=== PATIENT | female | born 1985 | race Caucasian/White ===

== ENCOUNTER 2016-09-01 13:15 | Emergency (ER) | payer MEDICAID ==
[~2016-09-01] VITALS: Ht 160 cm; Wt 65.9 kg
[~2016-09-01 13:15] MED LIST: MOTRIN 600600 MG/TAB PO; PROTONIX 40MG T40 MG PO; TOPROL XL 25MG25 MG PO; ZOFRAN ODT4 MG PO; [UNRECOGNIZED DRUG - REMARK]
[2016-09-01 13:17] VITALS: BP 151/59; PULSE 93; TEMP 97.8
[2016-09-01] MEDS ORDERED: MOBIC 7.5MG7.5 MG PO (13:20)
== END 2016-09-01 15:03 | disposition home or self-care (01) ==
LOC: COL.ER 13:15
DX: S16.1XXA Strain of muscle, fascia and tendon at neck level, initial encounter (principal); S46.912A Strain of unspecified muscle, fascia and tendon at shoulder and upper arm level, left arm, initial encounter; Y04.2XXA Assault by strike against or bumped into by another person, initial encounter; Y92.59 Other trade areas as the place of occurrence of the external cause; I10 Essential (primary) hypertension

== ENCOUNTER 2018-06-14 09:16 | Emergency (ER) | payer SELFPAY ==
[~2018-06-14] VITALS: Ht 162.6 cm; Wt 65.9 kg
[~2018-06-14 09:16] MED LIST changes: +MOBIC 7.5MG7.5 MG PO
[2018-06-14 09:26] VITALS: TEMP 98.7
[2018-06-14 10:02] LABS: BASO % 0.7 % (0.0-2.0); EOS # 0.1 (0.0-0.7); EOS % 2.1 % (0-4.0); GRAN # 3.6 (1.4-6.5); GRAN % 58.9 % (42.2-75.2); HEMOGLOBIN 10.7 g/dl (12.5-16.0); LYMPH # 1.8 (1.2-3.4); LYMPH % 30.2 % (20.0-51.0); MEAN CELL VOLUME 79 fl (80.0-100.0); MEAN CORPUSCULAR HEMOGLOBIN 25 pg (27.0-31.0); MEAN CORPUSCULAR HGB CONC 31 g/dl (33.0-37.0); MEAN PLATELET VOLUME 11.1 fl (7.4-10.4); MONO # 0.5 (0.1-0.6); MONO % 7.9 % (1.7-9.3); PLATELET COUNT 183 K/mm3 (130-400); RED BLOOD COUNT 4.34 M/mm3 (4.10-5.30)
[2018-06-14 10:03] LABS: HEMATOCRIT 34.1 % (37.0-47.0)
[2018-06-14 10:16] LABS: ALANINE AMINOTRANSFERASE 24 U/L (9-52); ALBUMIN 4.1 gm/dL (3.5-5.0); ALKALINE PHOSPHATASE 69 U/L (50-136); ANION GAP 7 mmol/L (7-16); AST,SGOT 24 U/L (15-37); BILIRUBIN,TOTAL 0.4 mg/dL (0.0-1.0); BLOOD UREA NITROGEN 11 mg/dL (7-17); CARBON DIOXIDE 26 mmol/L (22-30); CHLORIDE 105 mmol/L (98-107); CREATININE, serum 0.67 mg/dL (0.52-1.25); GLUCOSE 93 mg/dL (74-106); POTASSIUM 3.9 mmol/L (3.4-5.0); SODIUM 138 mmol/L (137-145); TOTAL PROTEIN 7.8 gm/dL (6.4-8.2)
[2018-06-14 10:22] LABS: C-REACTIVE PROTEIN < 0.5 mg/dL (0.0-0.9)
[2018-06-14] MEDS ORDERED: BONINE25 MG PO (10:38)
[2018-06-14 11:00] VITALS: BP 115/69; PULSE 69
== END 2018-06-14 11:05 | disposition home or self-care (01) ==
LOC: COL.ER 09:16
PROVIDERS: Family Medicine
DX: H83.02 Labyrinthitis, left ear (principal); E86.1 Hypovolemia
CPT/HCPCS: J7030

== ENCOUNTER 2019-06-07 19:18 | Emergency (ER) | payer SELFPAY ==
[~2019-06-07] VITALS: Ht 162.6 cm; Wt 75.5 kg
[~2019-06-07 19:18] MED LIST changes: +BONINE25 MG PO
[2019-06-07 20:02] LABS: COLLECTION METHOD CLEAN CATCH
[2019-06-07 20:10] LABS: MUCOUS Present /lpf; PH 5 (5-8); SQUAMOUS EPITHELIAL 0-2 /hpf; URINE APPEARANCE Clear; URINE BACTERIA None Seen /hpf; URINE BILIRUBIN Negative (NEGATIVE); URINE BLOOD 2+ (NEGATIVE); URINE COLOR Yellow; URINE GLUCOSE Negative (NEGATIVE); URINE KETONE 1+ (NEGATIVE); URINE LEUKOCYTE ESTERASE Negative (NEGATIVE); URINE NITRATE Negative (NEGATIVE); URINE PROTEIN(semi-quant) 1+ (NEGATIVE); URINE UROBILINOGEN Negative (NEGATIVE)
[2019-06-07] MEDS ORDERED: TAMIFLU 75MG75 MG PO (21:07)
[2019-06-07 21:50] VITALS: BP 113/62; PULSE 89; TEMP 99
== END 2019-06-07 21:50 | disposition home or self-care (01) ==
LOC: COL.ER 19:18
PROVIDERS: Family Medicine
DX: J10.1 Influenza due to other identified influenza virus with other respiratory manifestations (principal)

== ENCOUNTER → 2020-05-15 | Emergency (ER) | payer MEDICAID ==
[~2020-05-15] MED LIST changes: +TAMIFLU 75MG75 MG PO
== END ==
LOC: COL.ER 12:50
DX: Z00.00 Encounter for general adult medical examination without abnormal findings (principal)

== ENCOUNTER → 2020-05-18 | Outpatient (CLI) | payer MEDICAID | LOC: ZCOL.LAB 10:02 | DX: U07.1 COVID-19 (principal) ==

== ENCOUNTER → 2020-05-21 | Outpatient (CLI) | payer MEDICAID | LOC: ZCOL.LAB 15:27 | DX: Z53.8 Procedure and treatment not carried out for other reasons (principal) ==

== ENCOUNTER → 2020-10-16 | Outpatient (CLI) | payer MEDICAID ==
[~2020-10-16] MED LIST changes: +TOPROL XL 50MG50 MG PO
== END ==
LOC: COL.RAD 13:46
DX: R22.1 Localized swelling, mass and lump, neck (principal); L98.8 Other specified disorders of the skin and subcutaneous tissue

== ENCOUNTER → 2020-12-07 | Outpatient (CLI) | payer MEDICAID | LOC: COL.RAD 09:45 | DX: E04.2 Nontoxic multinodular goiter (principal); R93.89 Abnormal findings on diagnostic imaging of other specified body structures | CPT/HCPCS: A9585 ==

== ENCOUNTER 2021-05-16 10:16 | Emergency (ER) | payer MEDICAID ==
[~2021-05-16] VITALS: Ht 162.6 cm; Wt 72.7 kg
[2021-05-16 10:50] VITALS: TEMP 98.5
[2021-05-16] MEDS ORDERED: SYNTHROID0.125 MG/T PO (10:56)
[2021-05-16] MEDS ORDERED: PEPCID 20MG TAB20 MG PO (11:02)
[2021-05-16] MEDS ORDERED: ZOFRAN ODT4 MG PO (11:02)
[2021-05-16 11:11] VITALS: BP 115/75; PULSE 87
== END 2021-05-16 11:07 | disposition home or self-care (01) ==
LOC: COL.ER 10:16
DX: Z73.0 Burn-out (principal); E03.9 Hypothyroidism, unspecified; Z79.890 Hormone replacement therapy

== ENCOUNTER → 2021-06-13 | Outpatient (CLI) | payer MEDICAID ==
[~2021-06-13] MED LIST changes: +PEPCID 20MG TAB20 MG PO; +SYNTHROID0.125 MG/T PO
[2021-06-13 11:59] LABS: BASO # 0.1 K/mm3 (0.0-0.2); BASO % 0.9 % (0.0-2.0); EOS # 0.2 K/mm3 (0.0-0.7); EOS % 3.2 % (0.0-4.0); GRAN # 3.1 K/mm3 (1.4-6.5); GRAN % 54.5 % (42.2-75.2); HEMOGLOBIN 10.5 g/dl (12.5-16.0); LYMPH % 34.2 % (20.0-51.0); MEAN CELL VOLUME 82 fl (80.0-100.0); MEAN CORPUSCULAR HEMOGLOBIN 26 pg (27-31); MEAN CORPUSCULAR HGB CONC 32 g/dl (33.0-37.0); MEAN PLATELET VOLUME 11.3 fl (7.4-10.4); MONO # 0.4 K/mm3 (0.1-0.6); PLATELET COUNT 193 K/mm3 (130-400); RED BLOOD COUNT 4.03 M/mm3 (4.10-5.30)
[2021-06-13 12:00] LABS: HEMATOCRIT 33.1 % (37.0-47.0)
[2021-06-13 12:19] LABS: ALBUMIN 3.8 gm/dL (3.5-5.0); BILIRUBIN,TOTAL 0.2 mg/dL (0.2-1.2); CALCIUM 8.9 mg/dL (8.4-10.2); CREATININE, serum 0.72 mg/dL (0.57-1.11); POTASSIUM 3.5 mmol/L (3.5-4.5); TOTAL PROTEIN 7.6 gm/dL (6.2-8.1)
== END ==
LOC: COL.LAB 11:19
PROVIDERS: Registered Nurse
DX: R10.12 Left upper quadrant pain (principal)

== ENCOUNTER 2024-01-04 23:26 | Emergency (ER) | payer OTHER ==
[~2024-01-04] VITALS: Ht 165.1 cm; Wt 72.7 kg
[~2024-01-04 23:26] MED LIST changes: +CEPHALEXIN500 M1 PO; +LEVAQUIN 5500 MG/TA1 PO; +MIRALAX238G PO; +NORCO 325 MG-51 TAB PO
[2024-01-04 23:50] VITALS: TEMP 98.7
[2024-01-05] MEDS ORDERED: NS 1,000 ML IV ONE (02:45)
[2024-01-05] MEDS ORDERED: Ondansetron 4 MG/2 ML VIAL IV ONE (02:45)
[2024-01-05 03:02] LABS: COLLECTION METHOD CLEAN CATCH
[2024-01-05 03:04] LABS: BASO % 0.7 % (0.0-2.0); EOS # 0.3 K/mm3 (0.0-0.7); EOS % 4.6 % (0.0-4.0); GRAN # 2.9 K/mm3 (1.4-6.5); GRAN % 51.9 % (42.2-75.2); HEMATOCRIT 41.7 % (37.0-47.0); HEMOGLOBIN 13.4 g/dl (12.5-16.0); LYMPH # 1.8 K/mm3 (1.2-3.4); LYMPH % 31.9 % (20.0-51.0); MEAN CELL VOLUME 87 fl (80.0-100.0); MEAN CORPUSCULAR HEMOGLOBIN 28 pg (27-31); MEAN CORPUSCULAR HGB CONC 32 g/dl (33.0-37.0); MEAN PLATELET VOLUME 10.2 fl (7.4-10.4); MONO # 0.6 K/mm3 (0.1-0.6); MONO % 10.5 % (1.7-9.3); PLATELET COUNT 221 K/mm3 (130-400); REDCELL DISTRIBUTION WIDTH-CV 13.2 % (11.5-14.5)
[2024-01-05 03:08] LABS: PH 5.5 (5.0-8.5); URINE APPEARANCE CLEAR (CLEAR/HAZY); URINE BLOOD 1+ (NEGATIVE); URINE COLOR YELLOW (YELLOW); URINE GLUCOSE NEGATIVE (NEGATIVE); URINE KETONE TRACE (NEGATIVE); URINE NITRATE NEGATIVE (NEGATIVE); URINE PROTEIN(semi-quant) NEGATIVE (NEGATIVE)
[2024-01-05 03:41] LABS: ALBUMIN 3.8 g/dL (3.5-5.0); BILIRUBIN,TOTAL 0.2 mg/dL (0.2-1.2); CREATININE, serum 0.81 mg/dL (0.57-1.11); POTASSIUM 3.7 mEq/L (3.5-4.5); TOTAL PROTEIN 8.2 g/dl (6.2-8.1)
[2024-01-05] MEDS ORDERED: ZOFRAN ODT4 MG PO (04:17)
[2024-01-05 04:30] VITALS: BP 122/80; PULSE 76
== END 2024-01-05 04:30 | disposition home or self-care (01) ==
LOC: COL.ER 23:26
PROVIDERS: Emergency Medicine
DX: B34.9 Viral infection, unspecified (principal); R50.9 Fever, unspecified; R11.2 Nausea with vomiting, unspecified
CPT/HCPCS: J2405; J7030